=== PATIENT | male | born 1960 | race Two or more races ===

== ENCOUNTER 2023-07-14 08:00 | Inpatient (IN) | payer MEDICAID ==
[~2023-07-14] VITALS: Ht 170.2 cm; Wt 76.2 kg
[2023-07-14 08:29] VITALS: PULSE 111; RESP 41; O2SAT 98
[2023-07-14 08:35] LABS: Basophils # (auto) 0.1 10 ^3/uL (0-0.2); Basophils % (auto) 0.8 % (0.0-2.0); Eosinophils # (auto) 0.2 10 ^3/uL (0-0.8); Eosinophils % (auto) 1.7 % (0.0-7.0); Hematocrit 40.6 % (41.0-53.0); Hemoglobin 13.5 g/dL (13.5-17.5); Lymphocytes # (auto) 1.3 10 ^3/uL (0.4-5.4); Lymphocytes % (auto) 13.9 % (10.0-50.0); Mean Corpuscular Hemoglobin 29.2 pg (28.0-32.0); Mean Corpuscular Hgb Conc. 33.2 g/dL (32.0-36.0); Mean Corpuscular Volume 87.9 fL (80.0-100.0); Monocytes # (auto) 0.9 10 ^3/uL (0-1.3); Monocytes % (auto) 10.2 % (0.0-12.0); Neutrophils # (auto) 6.8 10 ^3/uL (1.6-8.6); Neutrophils % (auto) 73.4 % (37.0-80.0); Red Blood Cells 4.62 10^6/uL (4.5-5.90); Red Cell Distribution Width 13.6 % (11.8-14.3); White Blood Cell 9.3 10^3/uL (4.4-10.8)
[2023-07-14 08:53] LABS: Alanine Aminotransferase 15 U/L (7-40); Alkaline Phosphatase 127 U/L (46-116); Anion Gap 4 (5-15); Aspartate Aminotransferase 17 U/L (13-40); BUN/Creatinine Ratio 11.5 (10.0-20.0); Blood Urea Nitrogen 11 mg/dL (9-23); Calcium 9.4 mg/dL (8.5-10.1); Carbon Dioxide 30 mmol/L (20-30); Chloride 102 mmol/L (98-107); Glucose 122 mg/dL (74-106); Potassium 3.8 mmol/L (3.5-5.1); Sodium 136 mmol/L (136-145)
[2023-07-14 08:54] LABS: Bilirubin, Total 0.7 mg/dL (0.2-1.0)
[2023-07-14] MEDS ORDERED: IOHEXOL 350 MG/ML 100ML IJ ONE (12:31)
[2023-07-14 13:21] LABS: Urine WBC None Seen /hpf (0 - 3)
[2023-07-14 13:34] LABS: Urine Bacteria NONE SEEN /hpf (None Seen); Urine Blood Negative /uL (Negative); Urine Clarity Clear (Clear); Urine Color Yellow (Yellow); Urine Hyaline Cast FEW /lpf (0 - 2); Urine Protein, UAD Negative (Negative); Urine Specific Gravity 1.015 (1.001-1.035); Urine Urobilinogen Normal (Negative)
[2023-07-14] MEDS ORDERED: ONDANSETRON HCL 4 MG/2 ML VIAL IV PRN (15:45)
[2023-07-14] MEDS ORDERED: MORPHINE SULFATE INJ 2 MG/ml SYRG IV PRN (15:45)
[2023-07-14] MEDS ORDERED: DOCUSATE SOD 100 MG CAP PO PRN (15:45)
[2023-07-14] MEDS ORDERED: NITROGLYCERIN 0.4 MG SL TAB SL PRN (15:45)
[2023-07-14 16:40] LABS: INR 1.09 (0.9-1.15); Prothrombin Time 11.4 sec (9.3-11.8)
[2023-07-14 18:58] VITALS: PULSE 90; RESP 22; O2SAT 2
[2023-07-14 20:00] VITALS: PULSE 96
[2023-07-14] MEDS ORDERED: ROSU10TA16 PO (20:08)
[2023-07-14] MEDS ORDERED: MORP30TA PO (20:08)
[2023-07-14] MEDS ORDERED: TAMS0.4C36 PO (20:08)
[2023-07-14 22:00] VITALS: BP 127/73; PULSE 92; RESP 26; TEMP 98.6; O2SAT 96
[2023-07-15] VITALS (8 sets, daily range): BP systolic 96–134; BP diastolic 64–92; PULSE 91–112; RESP 17–19; TEMP 98.4–98.9; O2SAT 96–99
[2023-07-15] MEDS: ACETAMINOPHEN 325 MG TAB PO PRN (03:10)
[2023-07-15 06:15] LABS: Basophils # (auto) 0.1 10 ^3/uL (0-0.2); Basophils % (auto) 0.8 % (0.0-2.0); Eosinophils # (auto) 0.3 10 ^3/uL (0-0.8); Hematocrit 37.8 % (41.0-53.0); Hemoglobin 12.7 g/dL (13.5-17.5); Lymphocytes % (auto) 12.1 % (10.0-50.0); Mean Corpuscular Hemoglobin 29.3 pg (28.0-32.0); Mean Corpuscular Hgb Conc. 33.5 g/dL (32.0-36.0); Mean Corpuscular Volume 87.4 fL (80.0-100.0); Monocytes # (auto) 1.1 10 ^3/uL (0-1.3); Monocytes % (auto) 13.1 % (0.0-12.0); Nucleated Red Blood Cells % 0.1 %; Red Blood Cells 4.33 10^6/uL (4.5-5.90); Red Cell Distribution Width 13.4 % (11.8-14.3); White Blood Cell 8.5 10^3/uL (4.4-10.8)
[2023-07-15 06:37] LABS: Alanine Aminotransferase 13 U/L (7-40); Albumin 3.7 g/dL (3.2-4.8); Alkaline Phosphatase 109 U/L (46-116); Anion Gap 6 (5-15); Aspartate Aminotransferase 13 U/L (13-40); BUN/Creatinine Ratio 13.6 (10.0-20.0); Bilirubin, Total 0.7 mg/dL (0.2-1.0); Blood Urea Nitrogen 12 mg/dL (9-23); Calcium 8.9 mg/dL (8.7-10.4); Carbon Dioxide 29 mmol/L (20-30); Chloride 101 mmol/L (98-107); Glucose 90 mg/dL (74-106); Potassium 4.1 mmol/L (3.5-5.1); Sodium 136 mmol/L (136-145); Total Protein 6.9 g/dL (5.7-8.2)
[2023-07-15] MEDS: ENOXAPARIN SOD 40 MG/0.4 ML SYRINGE SC SCH (10:11)
[2023-07-15] MEDS: HYDROcodone-ACET 5/325MG TAB PO PRN (18:08)
[2023-07-16] MEDS: ACETAMINOPHEN 325 MG TAB PO PRN (00:18)
[2023-07-16] MEDS: HYDROcodone-ACET 5/325MG TAB PO PRN (04:43)
[2023-07-16 05:00] VITALS: BP 113/80; PULSE 94; RESP 20; TEMP 98.5; O2SAT 100
[2023-07-16 08:00] VITALS: BP 131/81; PULSE 90; PULSE 91; RESP 16; TEMP 98.1; O2SAT 98
[2023-07-16 08:30] VITALS: BP 113/81; PULSE 91; RESP 16; TEMP 98.1; O2SAT 98
[2023-07-16] MEDS: ENOXAPARIN SOD 40 MG/0.4 ML SYRINGE SC SCH (10:01)
[2023-07-16 13:07] VITALS: BP 112/80; PULSE 91; RESP 18; TEMP 98.4; O2SAT 99
[2023-07-16 15:53] VITALS: BP 113/80; PULSE 91; RESP 18; TEMP 98.4; O2SAT 99
[2023-07-17 09:10] LABS: Hepatitis B Surface Antigen Negative (Negative)
[2023-07-17 09:31] LABS: Hepatitis C Antibody Negative (Negative)
== END 2023-07-16 16:18 | disposition home or self-care (01) | DRG 136 ==
LOC: ER 08:00 → TELE 15:34 → TELE-WESTW 18:36
PROVIDERS: ADMIT Internal Medicine; ATTEND Internal Medicine
PROC: 0W9B3ZZ Drainage of Left Pleural Cavity, Percutaneous Approach (ICD-10-PCS; principal; 2023-07-15)
DX: C34.92 Malignant neoplasm of unspecified part of left bronchus or lung (principal); J96.01 Acute respiratory failure with hypoxia; C79.51 Secondary malignant neoplasm of bone; J91.0 Malignant pleural effusion; J98.11 Atelectasis
CPT/HCPCS: 32555; 36415; 71045; 71275; 76604; 80053; 81001; 83880; 84484; 85025; 85379; 85610; 86803; 87340; 97163; 99291; G0378